=== PATIENT | female | born 1960 | race Caucasian/White ===

== ENCOUNTER 2017-04-05 16:31 | Emergency (ER) | payer BC, OTHER ==
[~2017-04-05] VITALS: Ht 165.1 cm; Wt 62.0 kg
[~2017-04-05 16:31] MED LIST: ALPR0.5T3 PO; ASPI81TA5 PO; GABA300C5 PO; METF1000 PO; NAPR500T PO; TAMS5CAP PO
[2017-04-05 16:35] VITALS: BP 180/92; PULSE 95; RESP 20; TEMP 98.7; O2SAT 98
[2017-04-05] MEDS ORDERED: methylPREDNISolone SOD SUCC 125 MG/2 ML VIAL IV PUSH ONE (17:15)
[2017-04-05] MEDS ORDERED: KETOROLAC TROMETHAMINE 30 MG/ML (IVP) VIAL IV PUSH ONE (17:15)
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
[2017-04-05 17:40] LABS: HEMATOCRIT 38.3 % (35.0-46.0); MEAN CELL VOLUME 87.7 FL (80.0-100.0); MEAN CORPUSCULAR HEMOGLOBIN 29.4 PG (27.0-34.0); MEAN CORPUSCULAR HGB CONC 33.5 % (32.0-36.0); PLATELET COUNT 223 TH/MM3 (150-450); RED BLOOD COUNT 4.37 MIL/MM3 (4.00-5.30); REVIEW FLAG FINAL; WHITE BLOOD COUNT 9.2 TH/MM3 (4.0-11.0)
[2017-04-05 18:03] LABS: ALT (GPT) 22 U/L (10-53); ANION GAP 7 MEQ/L (5-15); AST (GOT) 16 U/L (15-37); BICARBONATE 27.3 MEQ/L (21.0-32.0); BLOOD UREA NITROGEN 22 MG/DL (7-18); CHLORIDE 108 MEQ/L (98-107); GLOMERULAR FILTRATION RATE 99 ML/MIN (>89); POTASSIUM 3.9 MEQ/L (3.5-5.1); SODIUM (NA) 142 MEQ/L (136-145)
[2017-04-05 18:05] LABS: ALKALINE PHOSPHATASE 59 U/L (45-117); TOTAL BILIRUBIN ADULT 0.3 MG/DL (0.2-1.0)
[2017-04-05 18:29] LABS: BACTERIA, URINE OCC /hpf; BLOOD, URINE NEG (NEG); COMMENT (UR) CULTURE INDICATED; CULTURE IF INDICATED CULTURE INDICATED; GLUCOSE,URINE NEG (NEG); HYALINE CAST, URINE 1 /lpf (RARE); KETONE, URINE NEG (NEG); MUCUS URINE FEW /lpf (OCC); NITRITE,URINE NEG (NEG); SQUAMOUS EPITHELIAL CELL URINE 2 /hpf (0-5); TRANSITIONAL EPI CELLS, URINE 1 /hpf; URINE COLOR YELLOW (YELLW/STRAW)
[2017-04-05] MEDS ORDERED: LORazepam 2 MG/ML VIAL IV PUSH ONE (18:30)
[2017-04-05] MEDS ORDERED: TRAM50TA PO (18:42)
[2017-04-05] MEDS ORDERED: AUGM500T7 PO (18:42)
[2017-04-05] MEDS ORDERED: SODIUM CHLOR 0.9% 1000 ML INJ 1,000 ML IV ONE (18:45)
[2017-04-05] MEDS ORDERED: cefTRIAXone INJ 1,000 MG in SODIUM CHLORIDE 0.9% INJ 100 ML IV ONE (18:45)
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
[2017-04-05 23:14] LABS: CREATINE KINASE 94 U/L (26-192)
[2017-04-05 23:39] LABS: AMPHETAMINE, URINE NEG (NEG); BARBITURATES, URINE NEG (NEG); COCAINE, URINE NEG (NEG)
--- NOTE | 2017-04-06 05:07 | EKG ---
Date Performed: 04/05/2017 Time Performed: 17:26:11 PTAGE: 56 years EKG: Sinus rhythm POSSIBLE LEFT ATRIAL ENLARGEMENT BORDERLINE ECG NO PREVIOUS TRACING DOCTOR: Dominguez Allen Interpretating Date/Time 04/06/2017 05:06:01
== END 2017-04-05 19:50 | disposition home or self-care (01) ==
LOC: NEPE 16:31
DX: M54.12 Radiculopathy, cervical region (principal); M54.16 Radiculopathy, lumbar region; F41.9 Anxiety disorder, unspecified; N39.0 Urinary tract infection, site not specified; M79.7 Fibromyalgia; E11.9 Type 2 diabetes mellitus without complications; R51 Headache; R42 Dizziness and giddiness; R53.1 Weakness
CPT/HCPCS: 80053; 80307; 81001; 82550; 84484; 85027; 87077; 87086; 87186; 93005; 96374; 96375; 99284; J0696; J1885; J2060; J2930; J7030